=== PATIENT | male | born 1970 | race Caucasian/White ===

== ENCOUNTER 2017-08-14 19:05 | Emergency (ER) | payer MEDICAID ==
[~2017-08-14] VITALS: Ht 170.2 cm; Wt 75.7 kg
[~2017-08-14 19:05] MED LIST: ACET-1008 PO; CEPH500C5 PO; HYDR-569 PO; METH-360 PO
[2017-08-14] MEDS ORDERED: PROPARACAINE/FLUORESCEIN ophthalmic drops 5ml bottle EACHEYE ONE (23:50)
[2017-08-15] MEDS ORDERED: TETanus/Pertussis (Acell)/Diphther VAC/PF (Tdap-Adult) 0.5ml syringe IMVAC ONE (00:30)
[2017-08-15] MEDS ORDERED: proparacaine 0.5% ophthalmic drops 15ml EACHEYE ONE (00:35)
[2017-08-15] MEDS ORDERED: SUL50S LEFTEYE (01:21)
[2017-08-15] MEDS ORDERED: HYDR-3965 PO (01:21)
[2017-08-15 01:27] VITALS: BP 126/98
== END 2017-08-15 01:28 | disposition home or self-care (01) ==
LOC: ER 19:05
DX: T15.02XA Foreign body in cornea, left eye, initial encounter (principal); F15.90 Other stimulant use, unspecified, uncomplicated; I10 Essential (primary) hypertension; Z88.6 Allergy status to analgesic agent; Z79.899 Other long term (current) drug therapy; Z56.0 Unemployment, unspecified; Z59.0 Homelessness; Z60.2 Problems related to living alone; W22.8XXA Striking against or struck by other objects, initial encounter; Y93.89 Activity, other specified; Y92.89 Other specified places as the place of occurrence of the external cause; Y99.8 Other external cause status
CPT/HCPCS: 65222; 90471; 90715; 99284

== ENCOUNTER 2018-02-18 10:05 | Emergency (ER) | payer MEDICAID ==
[~2018-02-18] VITALS: Ht 170.2 cm; Wt 72.7 kg
[~2018-02-18 10:05] MED LIST changes: -CEPH500C5 PO; +HYDR-4383 PO; -HYDR-569 PO
[2018-02-18 10:10] VITALS: BP 139/95
[2018-02-18] MEDS ORDERED: proparacaine 0.5% ophthalmic drops 15ml EACHEYE ONE (10:30)
[2018-02-18] MEDS ORDERED: erythromycin ophthalmic ointment 1gm tube LEFTEYE ONE (10:30)
[2018-02-18] MEDS ORDERED: acetaminophen 325mg tablet PO ONE (10:30)
== END 2018-02-18 13:15 | disposition home or self-care (01) ==
LOC: ER 10:05
DX: T15.82XA Foreign body in other and multiple parts of external eye, left eye, initial encounter (principal); I10 Essential (primary) hypertension; F15.90 Other stimulant use, unspecified, uncomplicated; Z59.0 Homelessness; Z56.0 Unemployment, unspecified; Z98.890 Other specified postprocedural states; Z88.6 Allergy status to analgesic agent; Z79.899 Other long term (current) drug therapy; X58.XXXA Exposure to other specified factors, initial encounter; Y93.89 Activity, other specified; Y92.89 Other specified places as the place of occurrence of the external cause; Y99.9 Unspecified external cause status
CPT/HCPCS: 65205; 99283; 99284

== ENCOUNTER 2021-08-26 17:48 | Emergency (ER) | payer MEDICAID ==
[~2021-08-26] VITALS: Ht 170.2 cm; Wt 79.9 kg
[2021-08-26 19:08] VITALS: BP 122/80
== END 2021-08-26 20:00 | disposition left against medical advice (07) ==
LOC: ER 17:49
DX: T15.90XA Foreign body on external eye, part unspecified, unspecified eye, initial encounter (principal); Z53.21 Procedure and treatment not carried out due to patient leaving prior to being seen by health care provider; X58.XXXA Exposure to other specified factors, initial encounter; Y93.89 Activity, other specified; Y92.89 Other specified places as the place of occurrence of the external cause; Y99.8 Other external cause status

== ENCOUNTER 2023-12-28 09:16 | Emergency (ER) | payer MEDICAID ==
[~2023-12-28] VITALS: Ht 170.2 cm; Wt 85.1 kg
[2023-12-28 09:16] VITALS: TEMP 97.6
[2023-12-28] MEDS ORDERED: SULF1TAB49 PO (10:57)
[2023-12-28 11:25] VITALS: BP 121/88; PULSE 96; RESP 14; O2SAT 97
== END 2023-12-28 11:27 | disposition home or self-care (01) ==
LOC: ER 09:16
DX: M79.642 Pain in left hand (principal); I10 Essential (primary) hypertension; F15.90 Other stimulant use, unspecified, uncomplicated; Z59.00 Homelessness unspecified; Z56.0 Unemployment, unspecified; Z60.2 Problems related to living alone; Z98.890 Other specified postprocedural states; Z88.6 Allergy status to analgesic agent; Z79.899 Other long term (current) drug therapy
CPT/HCPCS: 73110; 73130; 99284

== ENCOUNTER 2025-01-07 18:37 | Emergency (ER) | payer MEDICAID ==
[~2025-01-07] VITALS: Ht 170.2 cm; Wt 81.8 kg
[2025-01-07] MEDS ORDERED: HYDR-3686 PO (19:26)
[2025-01-07] MEDS ORDERED: PERM59LI8 TOP (19:26)
[2025-01-07] MEDS ORDERED: CYCL-394 PO (19:26)
--- NOTE | 2025-01-07 19:26 | Physician Documentation ---
History of Present Illness ~ Chief Complaint: Bite-insect Stated Complaint: MED REQUEST/ HEAD LICE Time Seen by MD: 19:09 Primary Medical Doctor: akanksha walk-in HPI This is a 54-year-old male with a history of chronic pain and multiple locations who is a resident of the [facility] who presents with concern for lice in his hair, patient reports that the [facility] and found lice in his hair and sent him here, patient additionally is requesting a Toradol injection and a refill of muscle relaxer for his chronic pain as he missed his doctor's appointment at the [facility] today. Patient additionally reports that he has feeling anxious in his requesting something for anxiety. Reports no other acute symptoms. Tetanus within 5 years?: Yes Medication Reconciliation Allergies: Coded Allergies: ibuprofen (Unverified Allergy, Unknown, 12/28/23) aspirin (Unverified Adverse Reaction, Unknown, UPSET STOMACH, 12/28/23) Uncoded Allergies: PENICILLIN (Allergy, Unknown, 01/07/25) Scheduled Acetaminophen (Tylenol), 650 MG PO Q4H PRN TEMPERATURE, (Reported) Cyclobenzaprine HCl (Cyclobenzaprine HCl), 1 TAB PO Q8H Hydrocodone/Acetaminophen ([place] 5-325 Tablet), 1 TAB PO TID PRN Hydroxyzine Hcl (Atarax), 1 TAB PO Q8H Methocarbamol (Robaxin-750), 1 TAB PO Q12H Discontinued Medications Permethrin (Lice Treatment), 1 APPLIC TOP ONCE Past Medical History Past Medical History: Hypertension Past Surgical History: orthopedic surgeries Alcohol Use: None Drug Use: methamphetamine Lives with: Alone Lives In: Homeless Occupation: unemployed Review of Systems ROS As stated above in the HPI, otherwise all systems are reviewed and negative. Physical Exam Vital Signs: Temperature: 98.0, Heart Rate: 78, Respiratory Rate: 16, BP: 142/97, Pulse Oximetry: 100, Weight: 81.820 Oxygen Flow Rate: 0 Physical Exam VITALS: Reviewed and as above. GENERAL: Alert, nontoxic appearing, no apparent distress. HEENT: Lice and eggs found on hair shafts RESPIRATORY: No increased work of breathing, no respiratory distress, speaking in full clear sentences Progress Results/Orders Results/Orders Completed Orders - MAURICIO CABA [employer] Hydroxyzine Tablet (Atarax Tablet) (01/07/25 19:35) Ketorolac Trometh 15mg/Ml Vial (Toradol (01/07/25 19:35) Cyclobenzaprine Tablet (Flexeril Tablet) (01/07/25 19:35) Ivermectin 117 Gm Bottle (Ivermectin 117 (01/07/25 19:45) Medications Received in ER Medications (Trade) Dose Ordered Sig/Heidi Route PRN Reason Start Time Stop Time Status Last Admin Dose Admin (Atarax tablet) 25 mg ONCE ONCE PO 01/07/25 19:35 01/07/25 19:36 DC 01/07/25 20:05 25 MG (Toradol injection) 15 mg ONCE ONCE IM 01/07/25 19:35 01/07/25 19:36 DC 01/07/25 20:05 15 MG (Flexeril tablet) 10 mg ONCE ONCE PO 01/07/25 19:35 01/07/25 19:36 DC 01/07/25 20:06 10 MG (Ivermectin 117gm lotion) 1 applic ONCE ONCE TP 01/07/25 19:45 01/07/25 19:46 DC 01/07/25 20:06 1 APPLIC Vital Signs 01/07/25 01/07/25 18:53 20:10 Temp 98.0 98.6 Pulse 78 78 Resp 16 18 B/P (MAP) 142/97 140/96 Pulse Ox 100 99 O2 Flow Rate 0 Medical Decision Making Additional information obtaine: old records Findings This is a 54-year-old male who presented from the [facility] [facility] with concern for lice in his hair, physical exam did demonstrate evidence of lice in his hair which will require treatment. Patient had additional concern for chronic pain at multiple locations which he was unable to see his primary care at the [facility] today for treatment, patient was requesting refill of previously prescribed medications, given patient's out of these medications these will be refilled, patient medicated for pain during emergency department visit. Patient is otherwise well-appearing and appropriate for outpatient follow up. Patient provided home care instructions, follow up instructions, and return to care precautions. Differential Dx:Considerations: Include: Abrasion, Allergic reaction, Anaphylaxis, Cellulitis, Hematoma, Insect envenomation, Neurovascular injury, Urticaria, Other (Dandruff, scabies, body lice) Departure Time of Disposition: 19:20 Disposition: HOME / SELF CARE / HOMELESS Impression: Primary Impression: Lice infested hair Additional Impression: Chronic pain of multiple sites Condition: Improved Discharge Instructions: Lice, Adult Additional Instructions: You have received treatment for your lice infestation Please additionally pickling grader a lice comb from your local pharmacy to help remove the lice and nits from your hair. Please follow up with your primary care provider or the [facility] in the next few days. Please return to the emergency department for any new or worsening concerning symptoms. Please use the other medications for your anxiety and chronic pain as prescribed. Referrals: NO PRIMARY CARE PROVIDER (PCP) Prescriptions Acetaminophen (Acetaminophen) 325 Mg Tablet 2 TAB PO Q6H PRN for pain or fever for 30 Days, #240 TAB Prov: MAURICIO CABA 01/07/25 Hydroxyzine Hcl (Atarax) 25 Mg Tablet 1 TAB PO Q8H for anxiety for 10 Days, #30 TAB 0 Refills Prov: MAURICIO CABA 01/07/25 Cyclobenzaprine HCl (Cyclobenzaprine HCl) 10 Mg Tablet 1 TAB PO Q8H for muscle spasms for 10 Days, #30 TAB Prov: MAURICIO CABA 01/07/25 Education Educated: Patient Educated regarding: diagnosis, treatment, prognosis, need for follow up Signature Scribe Signature: No scribe Attestation: The note accurately reflects work and decisions made by me.RADHA Hamilton 01/07/25 23:11 MAURICIO CABA Jan 07, 2025 19:26
[2025-01-07] MEDS ORDERED: Permethrin 1% 59ml topical rinse TP ONE (19:35)
[2025-01-07] MEDS: ketorolac trometh 15mg/ml vial 15 MG/ML ML IM ONE (20:05)
[2025-01-07] MEDS: IVERMECTIN 117 GM LOTION TP ONE (20:06)
[2025-01-07 20:10] VITALS: BP 140/96; PULSE 78; RESP 18; TEMP 98.6; O2SAT 99
[2025-01-07] MEDS ORDERED: ACET-1266 PO (23:09)
== END 2025-01-07 20:25 | disposition home or self-care (01) ==
LOC: ER 18:37
DX: B85.0 Pediculosis due to Pediculus humanus capitis (principal); F41.9 Anxiety disorder, unspecified; I10 Essential (primary) hypertension; Z88.0 Allergy status to penicillin; Z88.5 Allergy status to narcotic agent; Z88.6 Allergy status to analgesic agent
CPT/HCPCS: 96372; 99284; J1885; Q0177

== ENCOUNTER 2025-01-24 20:38 | Emergency (ER) | payer MEDICAID ==
[~2025-01-24] VITALS: Ht 170.2 cm; Wt 78.0 kg
[~2025-01-24 20:38] MED LIST changes: +ACET-1266 PO; +HYDR-3686 PO
[2025-01-24 21:34] VITALS: BP 125/65; PULSE 88; TEMP 97.8; O2SAT 98
--- NOTE | 2025-01-24 23:46 | Physician Documentation ---
History of Present Illness ~ Chief Complaint: Neck pain Stated Complaint: ALLERGIC REACTION Time Seen by MD: 23:41 Primary Medical Doctor: MIKO PETIT [facility] Patient 54-year-old male that presents to the emergency department for chronic neck pain. Patient reports that he was given Toradol with little improvement usually has [place] but is out of [place]. Patient also reports he has had a sore throat for several days he is refusing additional diagnostics at this time reports that he just seems antibiotics that is what he was given had sore throat like this in the past. Patient denies fever chills nausea vomiting diarrhea at this time reports pain in the lateral posterior neck bilaterally no cervical spine tenderness no headache no shortness of breath no chest pain or any other symptoms at this time. Medication Reconciliation Allergies: Coded Allergies: Penicillins (Verified Allergy, Unknown, 01/24/25) ibuprofen (Unverified Allergy, Unknown, 01/24/25) aspirin (Unverified Adverse Reaction, Unknown, UPSET STOMACH, 01/24/25) Scheduled Acetaminophen (Tylenol), 650 MG PO Q4H PRN TEMPERATURE, (Reported) Doxycycline Hyclate (Doxycycline Hyclate), 1 CAP PO Q12H Hydrocodone/Acetaminophen ([place] 5-325 Tablet), 1 TAB PO TID PRN Hydroxyzine Hcl (Atarax), 1 TAB PO Q8H Methocarbamol (Robaxin-750), 1 TAB PO Q12H Scheduled PRN Acetaminophen (Acetaminophen), 2 TAB PO Q6H PRN for pain or fever Discontinued Medications Cyclobenzaprine HCl (Cyclobenzaprine HCl), 1 TAB PO Q8H Discontinued Reason: Auto Discontinued Past Medical History Past Medical History: Hypertension Past Surgical History: orthopedic surgeries Alcohol Use: None Drug Use: methamphetamine Lives with: Alone Lives In: Homeless Occupation: unemployed Review of Systems ROS As stated above in the HPI, otherwise all systems are reviewed and negative. Physical Exam Vital Signs: Temperature: 97.8, Source: Temporal, Heart Rate: 88, Respiratory Rate: 15, BP: 125/65, Pulse Oximetry: 98, Weight: 78.000 Physical Exam VITALS: Reviewed and as above. GENERAL: Alert, no apparent distress. HEENT: Normocephalic, atraumatic, PERRL, EOMI, dry mucosa, no erythema, mild erythema noted to the posterior oropharynx exudate noted. RESPIRATORY: Lungs clear, normal breath sounds, no respiratory distress. CHEST: No accessory muscle use, no retractions CV: Regular rate, rhythm, no edema, no murmur, No: JVD GI: Soft, non-tender, bowels sounds present, no rebound, guarding, or rigidity BACK: No CVA tenderness, or swelling MUSCULOSKELETAL No deformities, no edema SKIN: Warm and dry, no rash NEURO: Oriented x4, No motor or sensory deficit PSYCH: Normal mood and affect, no agitation Progress Results/Orders Results/Orders Orders - DEMIAN GARCIA [employer] Doxycycline 100mg/Ns 100ml Pb (Vibramyci (01/25/25 08:00) Doxycycline 100mg Capsule (Vibramycin 10 (01/24/25 23:45) Completed Orders - DEMIAN GARCIA [employer] Hydrocodone/Apap 5/325mg Tab ([place] 5/32 (01/24/25 23:40) Vital Signs 01/24/25 21:34 Temp 97.8 Pulse 88 Resp 15 B/P (MAP) 125/65 Pulse Ox 98 Medical Decision Making Additional information obtaine: other Findings Patient is a 54-year-old male seen in the emergency department for evaluation of chronic neck pain medication refill he for us he is out of his pain medication. Patient also believes that he has strep throat as he has had a sore throat for several days he does not have cough congestion fever or chills. But does report significant sore throat. Erythema is present no exudate noted. Patient reports that he previously has needed antibiotics when he has had episodes like this. Patient is refusing diagnostics to confirm strep at this time. Patient will follow up with his primary care provider. Patient will return to the emergency department if any worsening of his current symptoms or any additional concerning symptoms we discussed here today. Assessment and Plan: 54-year-old male presenting with chronic neck pain and concurrent sore throat. Chronic Neck Pain: The patient presents with chronic bilateral lateral posterior neck pain without red flag symptoms. History and physical examination reveal no cervical spine tenderness, no neurologic deficits (motor weakness, sensory loss, reflex changes), no signs of myelopathy (gait instability, hand dexterity issues, urinary symptoms), and no constitutional symptoms suggesting infection or malignancy. The absence of these red flags indicates this is likely mechanical or nonspecific neck pain. Imaging is not indicated at this time. The [employer] recommends against routine imaging for acute or chronic cervical pain without red flag symptoms, as spondylotic changes are common in adults over 30 and correlate poorly with the presence of neck pain. The patient's clinical prese ntation does not meet criteria for emergent imaging, which would include history of cancer, fever with nocturnal pain, neurologic deficits, or signs of spinal cord compression. Regarding analgesic management: The patient reports minimal improvement with ketorolac and requests hydrocodone/acetaminophen refill. However, opioid therapy is not recommended for chronic nonspecific neck pain. Evidence supports that the management of chronic degenerative neck pain without neurologic deficit typically involves conservative measures including physical therapy and non- opioid analgesics. Long-term opioid use for mechanical neck pain lacks sup porting evidence and carries significant risks. Recommended treatment approach includes: Non-opioid analgesics (NSAIDs, acetaminophen) for short-term symptom relief Activating therapeutic measures with focus on self-management and exercise therapy, which have demonstrated high effect sizes for neck pain Physical therapy referral for structured exercise program Patient education regarding self-management strategies The patient declined these recommendations at this time. Pharyngitis: The patient reports sore throat for several days without fever, chills, or other constitutional symptoms. Antibiotics are not indicated based on current presentation. The patient lacks clinical features suggesting bacterial pharyngitis (no documented fever, no tonsillar exudates noted, no anterior cervical lymphadenopathy documented). The patient refused additional diagnostic evaluation including throat examination or rapid strep testing. Without clinical criteria supporting bacterial infection or diagnostic confirm ation, empiric antibiotic therapy would be inappropriate and contribute to antimicrobial resistance. The patient was counseled on this but declined further workup. Disposition: Patient declined recommended conservative management for chronic neck pain in cluding physical therapy referral and non-opioid analgesic regimen. Patient refused diagnostic evaluation for pharyngitis and insisted on antibiotic prescription without clinical indication. Patient refused opioid alternatives and requested specific controlled substance refill. Given the patient's refusal of evidence-based care and insistence on treatments not medically indicated (antibiotics for likely viral pharyngitis, opioids for chronic mechanical neck pain), the patient was advised of the medical rec ommendations and risks of requested treatments. The patient chose to leave against medical advice regarding the treatment plan. Patient instructed to return for worsening symptoms, development of neurologic deficits, fever, severe headache, or any red flag symptoms requiring urgent evaluation. Differential Dx:Considerations: Include: Cervical muscle spasm, Discitis, DJD, Meningitis, Thyroiditis, Torticollis, Vertebral artery dissect., Other Departure Disposition: 01 HOME / SELF CARE / HOMELESS Impression: Primary Impression: Neck pain Additional Impression: Strep pharyngitis Condition: Stable Discharge Instructions: Strep Throat, Adult, [id number] Additional Instructions: Presents the emergency department and evaluated for chronic neck pain. He were given a [place] here in the emergency department. Please follow up with the primary care provider regarding an additional prescription for pain medication if needed. You were also treated for strep throat empirically as you did not want to undergo additional diagnostics. He has been placed on doxycycline as you are allergic to penicillins. Please follow up with her primary care provider. Please return to the emergency department if any worsening or recurrent symptoms or any additional concerning symptoms we discussed here today. Referrals: NO PRIMARY CARE PROVIDER (PCP) Prescriptions Doxycycline Hyclate (Doxycycline Hyclate) 100 Mg Capsule 1 CAP PO Q12H for 10 Days, #20 CAP Prov: DEMIAN GARCIA 01/24/25 Education Educated: Patient Educated regarding: diagnosis, treatment, need for follow up Signature Scribe Signature: A Attestation: Scribed for Emergency,Department by RADHA Hoang . 01/24/25 23:54 DEMIAN GARCIA Jan 24, 2025 23:46
[2025-01-24] MEDS ORDERED: DOXY-1 PO (23:54)
[2025-01-24] MEDS: doxycycline 100mg/NS 100mL PB 100 ML IV SCH (23:55)
[2025-01-25] MEDS: DOXYCYCLINE 100MG CAPSULE PO STA (00:04)
[2025-01-25 00:05] VITALS: RESP 16
[2025-01-25] MEDS: HYDROcodone/acetaminophen 5mg/325mg tablet PO ONE (00:05)
== END 2025-01-25 00:17 | disposition home or self-care (01) ==
LOC: ER 20:38
DX: M54.2 Cervicalgia (principal); J02.0 Streptococcal pharyngitis; F11.90 Opioid use, unspecified, uncomplicated; I10 Essential (primary) hypertension; Z88.0 Allergy status to penicillin; Z88.5 Allergy status to narcotic agent; Z88.6 Allergy status to analgesic agent
CPT/HCPCS: 99283

== ENCOUNTER 2025-02-10 10:32 | Emergency (ER) | payer MEDICAID ==
[~2025-02-10] VITALS: Ht 172.7 cm; Wt 79.5 kg
[~2025-02-10 10:32] MED LIST changes: -ACET-1266 PO
[2025-02-10 10:34] VITALS: BP 155/84; PULSE 74; RESP 14; O2SAT 98
--- NOTE | 2025-02-10 11:50 | Physician Documentation ---
History of Present Illness ~ General Chief Complaint: Medication Request Stated Complaint: NECK PAIN Primary Medical Doctor: MIKO PETIT Medication Reconciliation Allergies: Coded Allergies: Penicillins (Verified Allergy, Unknown, 02/10/25) ibuprofen (Unverified Allergy, Unknown, 02/10/25) aspirin (Unverified Adverse Reaction, Unknown, UPSET STOMACH, 02/10/25) Scheduled Acetaminophen (Tylenol), 650 MG PO Q4H PRN TEMPERATURE, (Reported) Hydrocodone/Acetaminophen ([place] 5-325 Tablet), 1 TAB PO TID PRN Hydroxyzine Hcl (Atarax), 1 TAB PO Q8H Methocarbamol (Robaxin-750), 1 TAB PO Q12H Discontinued Medications Acetaminophen (Acetaminophen), 2 TAB PO Q6H PRN for pain or fever Discontinued Reason: Auto Discontinued Doxycycline Hyclate (Doxycycline Hyclate), 1 CAP PO Q12H Discontinued Reason: Auto Discontinued Past Medical History Past Medical History: Hypertension Past Surgical History: orthopedic surgeries Alcohol Use: None Drug Use: methamphetamine Lives with: Alone Lives In: Homeless Occupation: unemployed Physical Exam Physical Exam Vital Signs: Temperature: 98.4, Source: Temporal, Heart Rate: 74, Respiratory Rate: 14, BP: 155/84, Pulse Oximetry: 98, Weight: 79.550 Oxygen Flow Rate: 0 Progress Results/Orders Results/Orders Vital Signs 02/10/25 10:34 Temp 98.4 Pulse 74 Resp 14 B/P (MAP) 155/84 Pulse Ox 98 O2 Flow Rate 0 Medical Decision Making Additional information obtaine: N/A Findings opened in error Differential Diagnosis opened in error Departure Referrals: NO PRIMARY CARE PROVIDER (PCP) TASHI RUDD MD Feb 10, 2025 11:50
[2025-02-10] MEDS ORDERED: PRED50TA PO (13:08)
--- NOTE | 2025-02-10 13:09 | Physician Documentation ---
History of Present Illness ~ Chief Complaint: Medication Request Stated Complaint: NECK PAIN Time Seen by MD: 11:28 OK to notify your PCP?: Yes Primary Medical Doctor: MIKO NGO OR DAMASO Source: patient Mode of Arrival: POV Exam Limitations: no limitations HPI This is a 54-year-old male who comes in complaining of acute on chronic neck pain. The patient states that is he has a history of neck pain stemming from a accident that is happened a few months ago. The patient states that is he was getting out of bed and tripped falling and hitting a wall causing injury to the left side of the neck. The patient is states he gets flare-ups of pain periodically. He says he is takes gabapentin but that has not not been helping. The patient was brought in via [facility] ambulance and requested a Toradol shot which he received in route and states now he feels better. He denies radicular pain down the arms. He denies any other associated symptoms. Medication Reconciliation Allergies: Coded Allergies: Penicillins (Verified Allergy, Unknown, 02/10/25) ibuprofen (Unverified Allergy, Unknown, 02/10/25) aspirin (Unverified Adverse Reaction, Unknown, UPSET STOMACH, 02/10/25) Scheduled Acetaminophen (Tylenol), 650 MG PO Q4H PRN TEMPERATURE, (Reported) Hydrocodone/Acetaminophen ([place] 5-325 Tablet), 1 TAB PO TID PRN Hydroxyzine Hcl (Atarax), 1 TAB PO Q8H Methocarbamol (Robaxin-750), 1 TAB PO Q12H Discontinued Medications Acetaminophen (Acetaminophen), 2 TAB PO Q6H PRN for pain or fever Discontinued Reason: Auto Discontinued Doxycycline Hyclate (Doxycycline Hyclate), 1 CAP PO Q12H Discontinued Reason: Auto Discontinued Past Medical History Past Medical History: Hypertension Past Surgical History: orthopedic surgeries Alcohol Use: None Drug Use: methamphetamine Lives with: Alone Lives In: Homeless Occupation: unemployed Physical Exam Vital Signs: Temperature: 98.4, Source: Temporal, Heart Rate: 74, Respiratory Rate: 14, BP: 155/84, Pulse Oximetry: 98, Weight: 79.550 Oxygen Flow Rate: 0 Progress Results/Orders Results/Orders Vital Signs 02/10/25 10:34 Temp 98.4 Pulse 74 Resp 14 B/P (MAP) 155/84 Pulse Ox 98 O2 Flow Rate 0 Medical Decision Making Additional information obtaine: N/A Findings The patient received Toradol 30 mg IM and route and now says he feels better. I am going to place him on a short burst dose of prednisone at 50 mg once a day for five days and have him continue with the gabapentin. Warm compresses to the area. Follow up with the primary care physician for recheck in the next one or two days and return to the ER for any worsening or concerning symptoms. Differential Dx:Considerations: Include: Cervical muscle spasm, Discitis, DJD Additional Comment Acute on chronic cervical spine pain. Facet arthropathy. Cervical radiculopathy. Departure Disposition: HOME / SELF CARE / HOMELESS Impression: Primary Impression: Chronic neck pain Condition: Stable Discharge Instructions: Chronic Pain, Adult Additional Instructions: I will prescribe you a strong anti-inflammatory medication called prednisone that you can take once a day for five days and continue with the gabapentin. Warm compresses to the sore area. Follow up with the primary care physician for recheck in the next one or two days and return to the ER for any worsening or concerning symptoms. Referrals: NO PRIMARY CARE PROVIDER (PCP) Prescriptions Prednisone (Prednisone) 50 Mg Tablet 1 TAB PO DAILY for 5 Days, #5 TAB 0 Refills Prov: PERLA OLSEN 02/10/25 Signature Scribe Signature: No scribe Attestation: The note accurately reflects work and decisions made by me.Perla ALLEN 02/10/25 13:08 PERLA OLSEN Feb 10, 2025 13:09
[2025-02-10 13:19] VITALS: TEMP 98.4
== END 2025-02-10 13:20 | disposition home or self-care (01) ==
LOC: ER 10:32
DX: G89.29 Other chronic pain (principal); M54.2 Cervicalgia; I10 Essential (primary) hypertension; F15.90 Other stimulant use, unspecified, uncomplicated; Z88.0 Allergy status to penicillin; Z88.6 Allergy status to analgesic agent; Z79.899 Other long term (current) drug therapy; Z59.00 Homelessness unspecified; Z56.0 Unemployment, unspecified; Z98.890 Other specified postprocedural states; Z60.2 Problems related to living alone; W01.198A Fall on same level from slipping, tripping and stumbling with subsequent striking against other object, initial encounter; Y93.89 Activity, other specified; Y92.89 Other specified places as the place of occurrence of the external cause; Y99.8 Other external cause status
CPT/HCPCS: 99283